=== PATIENT | male | born 1990 | race Caucasian/White ===

== ENCOUNTER 2020-06-22 19:42 | Emergency (ER) | payer MEDICAID ==
[~2020-06-22] VITALS: Ht 167.6 cm; Wt 110.7 kg
[2020-06-22 19:54] VITALS: BP 144/94
--- NOTE | 2020-06-22 19:59 | NUR ---
PT AMBULATED TO BED 11 WITH STEADY GAIT.
--- NOTE | 2020-06-22 20:05 | NUR ---
30 YO M BIB SELF FOR C/C OF DIZZINESS X2 DAYS. PT STATES HE IS NAUSEOUS WITH NO VOMITING. NO NYSTAGMUS VISUAIZED. PT STATES HE IS DEHYDRATED AND HAS BEEN SMOKING CANNABIS. ALSO STATES HE HAS INTERMITTENT CRAMING ON R ABDOMEN. DENIES PAIN AT THIS TIME. BED LOCKED AND IN LOWEST POSITION. SIDE RAILS X1. MED HX: JUDY NKA NO RX Addendum: 06/22/20 at 2013 by [email or web address] 30 YO M BIB SELF FOR C/C OF DIZZINESS X2 DAYS. PT STATES HE IS NAUSEOUS WITH NO VOMITING. NO NYSTAGMUS VISUAIZED. PT STATES HE IS DEHYDRATED AND HAS BEEN SMOKING CANNABIS. ALSO STATES HE HAS INTERMITTENT CRAMPING ON R ABDOMEN. DENIES PAIN AT THIS TIME. BED LOCKED AND IN LOWEST POSITION. SIDE RAILS X1. MED HX: JUDY NKA NO RX
[2020-06-22] MEDS ORDERED: NACL 0.9% 1,000 ML IV ONE (20:55)
[2020-06-22] MEDS ORDERED: MECLIZINE 25 MG TAB PO ONE (20:55)
--- NOTE | 2020-06-22 21:05 | NUR ---
NAMRATA PEREZ. LABS DRAWN AND SENT TO LAB. PT TOLERATED WELL.
--- NOTE | 2020-06-22 21:10 | NUR ---
PT AMBULATED TO RR WITH STEADY GAIT TO PROVIDE UA
[2020-06-22 21:18] LABS: BASOPHILS # (AUTO) 0.1 K/uL (0.00-0.22); BASOPHILS % (AUTO) 1.6 % (0.0-2.0); EOSINOPHILS # (AUTO) 0.1 K/uL (0-0.4); EOSINOPHILS % (AUTO) 1.3 % (0.0-4.0); HEMATOCRIT 44.2 % (36-52); HEMOGLOBIN 14.8 g/dL (12.0-18.0); LYMPHOCYTES # (AUTO) 2.5 K/uL (2.0-11.5); MEAN CORPUSCULAR HEMOGLOBIN 28 pg (27-31); MEAN CORPUSCULAR HGB CONC 34 g/dL (33-37); MONOCYTES # (AUTO) 0.5 K/uL (0.8-1.0); MONOCYTES % (AUTO) 7.9 % (1.7-9.3); NEUTROPHILS # (AUTO) 3.1 K/uL (1.8-7.7); NEUTROPHILS % (AUTO) 49.2 % (42.2-75.2); PLATELET COUNT (AUTO) 218 K/uL (140-450); RED BLOOD CELL COUNT(AUTO) 5.33 MIL/uL (4.20-6.10); RED CELL DISTRIBUTION WIDTH 13.4 % (11.6-13.7); WHITE BLOOD COUNT (AUTO) 6.3 K/uL (4.8-10.8)
[2020-06-22 21:25] LABS: ANION GAP 14.8 (8-16); CREATININE 1.1 mg/dL (0.6-1.3); POTASSIUM 3.8 mmol/L (3.5-5.1)
[2020-06-22 21:36] LABS: BARBITURATE, URINE NEGATIVE ng/ml (NEG <=200); BENZODIAZEPINE, URINE NEGATIVE ng/mL (NEG <=200); CANNABINOID, URINE POSITIVE ng/mL (NEG <=50); COCAINE, URINE NEGATIVE ng/mL (NEG <=300); OPIATE, URINE NEGATIVE ng/mL (NEG <=2000); PHENCYCLIDINE SCREEN,URINE NEGATIVE ng/mL (NEG <=25)
--- NOTE | 2020-06-22 21:46 | NUR ---
PT STATES HIS DIZZINESS HAS RESOLVED POST PO ANTIVERT
[2020-06-22 22:04] VITALS: BP 138/85
== END 2020-06-22 22:04 | disposition home or self-care (01) ==
LOC: MED 19:42
DX: R42 Dizziness and giddiness (principal); E86.0 Dehydration; F12.10 Cannabis abuse, uncomplicated; Z98.890 Other specified postprocedural states
CPT/HCPCS: 36415; 80048; 80305; 85025; 96360; 99283; J7030; J8597

== ENCOUNTER 2020-09-13 13:07 | Emergency (ER) | payer MEDICAID ==
[~2020-09-13] VITALS: Ht 167.6 cm; Wt 102.1 kg
[2020-09-13 13:43] VITALS: BP 124/62
--- NOTE | 2020-09-13 14:00 | NUR ---
Pt c/o right ear pain with drainage and right thumb pain since 08/23 medhx: denies
--- NOTE | 2020-09-13 16:10 | NUR ---
APPLIED FINGER SPLINT TO RIGHT FIRST DIGIT WITHOUT ANY ISSUES
[2020-09-13 16:28] VITALS: BP 124/62
--- NOTE | 2020-09-13 16:28 | NUR ---
Patient discharged with v/s stable. Written and verbal after care instructions given and explained. Patient verbalized understanding. Ambulatory with steady gait. All questions addressed prior to discharge. Advised to follow up with PMD.
== END 2020-09-13 16:28 | disposition home or self-care (01) ==
LOC: MED 13:07
DX: H92.01 Otalgia, right ear (principal); M79.644 Pain in right finger(s)
CPT/HCPCS: 99283

== ENCOUNTER 2021-03-15 18:25 | Emergency (ER) | payer MEDICAID ==
[~2021-03-15] VITALS: Ht 167.6 cm; Wt 107.0 kg
[2021-03-15 18:44] VITALS: BP 144/68
--- NOTE | 2021-03-15 19:25 | NUR ---
AMBULATED TO BED 12 FROM LOBBY WITH C/O LEFT JAW PAIN. "I THINK I'M DEHYDRATED AND I DON'T KNOW IF I GRIND MY TEETH " IS AWAKE, ALERT. APPEARS IN NAD
[2021-03-15] MEDS ORDERED: KETOROLAC 60 MG/2 ML VIAL IM ONE (19:50)
[2021-03-15 20:30] VITALS: BP 137/79
--- NOTE | 2021-03-15 20:30 | NUR ---
PT. LEFT WITHOUT BEING SEEN BY ERMD.
== END 2021-03-15 20:30 | disposition left against medical advice (07) ==
LOC: MED 18:25
DX: R68.84 Jaw pain (principal); Z53.21 Procedure and treatment not carried out due to patient leaving prior to being seen by health care provider
CPT/HCPCS: J1885

== ENCOUNTER 2021-07-18 11:23 | Emergency (ER) | payer MEDICAID ==
[~2021-07-18] VITALS: Ht 167.6 cm; Wt 101.4 kg
[2021-07-18 11:36] VITALS: BP 141/84
--- NOTE | 2021-07-18 11:43 | NUR ---
PT AMB TO BED 12
[2021-07-18] MEDS ORDERED: KETOROLAC 60 MG/2 ML VIAL IM ONE (11:50)
--- NOTE | 2021-07-18 11:55 | NUR ---
31 Y MALE WITH C/O 2/10 HEADACHE RADIATING TO LEFT NECK X TODAY. PT STATED "HE FELT A POP IN HIS HEAD." PT DENIES ANY TRAUMA OR HITTING HIS HEAD. PT SPEACH IS CLEAR, PT IS A&OX4, ABLE TO FOLLOW COMMANDS, AND PERRLA INTACT. PT DENIES ANY BLURRY VISION AT THIS TIME. PT ALSO DENIES ANY NUMBESS/TINGLING DOWN HIS UE/LE PMH: DENIES NKA
--- NOTE | 2021-07-18 12:12 | NUR ---
DR. SCHWARTZ BEDSIDE EVALUATING PT
[2021-07-18] MEDS ORDERED: IBUP-2213 PO (12:21)
[2021-07-18 12:36] VITALS: BP 141/84
== END 2021-07-18 12:37 | disposition home or self-care (01) ==
LOC: MED 11:23
DX: R51.9 Headache, unspecified (principal); M54.2 Cervicalgia
CPT/HCPCS: 96372; 99283; J1885

== ENCOUNTER 2021-07-29 23:19 | Emergency (ER) | payer MEDICAID ==
[~2021-07-29] VITALS: Ht 167.6 cm; Wt 101.2 kg
[~2021-07-29 23:19] MED LIST: IBUP-2213 PO
[2021-07-29 23:24] VITALS: BP 122/70
--- NOTE | 2021-07-29 23:28 | NUR ---
PATIENT TO BED 4
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
--- NOTE | 2021-07-29 23:30 | NUR ---
JUAN BARNES AT BEDSIDE FOR MEDICAL EXAMINATION
[2021-07-29] MEDS ORDERED: MECLIZINE 25 MG TAB PO ONE (23:35)
[2021-07-29] MEDS ORDERED: MECL-303 PO (23:38)
--- NOTE | 2021-07-29 23:47 | NUR ---
EKG AT BEDSIDE
[2021-07-29 23:56] VITALS: BP 122/70
--- NOTE | 2021-07-29 23:56 | NUR ---
Patient discharged with v/s stable. Written and verbal after care instructions given and explained. Patient alert, oriented and verbalized understanding of instructions. Ambulatory with steady gait. All questions addressed prior to discharge. ID band removed. Patient advised to follow up with PMD. Rx of ANTIVERT given. Patient educated on indication of medication including possible reaction and side effects. Opportunity to ask questions provided and answered.
== END 2021-07-29 23:56 | disposition home or self-care (01) ==
LOC: MED 23:19
DX: R42 Dizziness and giddiness (principal)
CPT/HCPCS: 93005; 99283; J8597